=== PATIENT | female | born 1955 ===

== ENCOUNTER 2018-09-22 06:46 | Emergency (ER) | payer SELFPAY ==
[2018-09-22] MEDS ORDERED: ATROPINE 0.1% (CARDIAC) ONE (06:55)
[2018-09-22] MEDS ORDERED: ADRENALIN ONE (06:55)
--- NOTE | 2018-09-22 07:00 | Emergency Department Report ---
HPI - General Time Seen by Provider: 09/22/18 06:55 - HPI HPI: Room 1 The patient is a 62-year-old female presenting with a chief complaint cardiac arrest. Per EMS the patient was a witnessed arrest at [facility]. First EMS reportedly on scene at 06:10 initiate CPR. Second EMS on scene a 06:22 found the patient in asystole and ACLS protocols were continued. The patient was intubated with an LMA and given several rounds of epinephrine prior to arrival upon arrival to the ED LMA was removed and the patient was intubated by myself using an ET tube. ACLS protocols were continued without return of spontaneous circulation Location: Cardiovascular system Duration: [See above] Quality: Asystole Severity: Severe Modifying factors: [see above] Context: [see above] Mode of transportation: [not driving] ED Past Medical Hx - Past Medical History Hx Diabetes: Yes Hx Psychiatric Treatment: Yes - Surgical History Past Surgical History?: No Additional Surgical History: Unknown - Family History Family history: no significant - Social History Smoking Status: Unknown if ever smoked Substance Use Type: None ED Review of Systems ROS: Stated complaint: CARDIAC ARREST Other details as noted in HPI Comment: Unobtainable due to pts medical conditions Physical Exam - Physical Exam Physical Exam: GENERAL: The patient is well-developed well-nourished female lying on stretcher receiving chest compressions from EMS. [] HEENT: Normocephalic. Atraumatic. NECK: Trachea midline CHEST/LUNGS: No spontaneous respirations. Breath sounds bilaterally after intubation HEART/CARDIOVASCULAR: No heart sounds. Asystole on monitor ABDOMEN: Abdomen is soft. There is no abdominal distention. SKIN: There is no rash. There is no edema. There is no diaphoresis. NEURO: GCS 3T MUSCULOSKELETAL: There is no evidence of acute injury. ED Medical Decision Making - Differential Diagnosis cardiac arrest Critical care attestation.: If time is entered above; I have spent that time in minutes in the direct care of this critically ill patient, excluding procedure time. ED Disposition Clinical Impression: Cardiac arrest Disposition: DC-20 Is pt being admited?: No Does the pt Need Aspirin: No Condition: Poor Time of Disposition: 06:56 (patient )
== END 2018-09-22 11:00 ==
LOC: ED 06:46
DX: I46.9 Cardiac arrest, cause unspecified (principal); E11.9 Type 2 diabetes mellitus without complications
CPT/HCPCS: 99285; J0171; J0461